=== PATIENT | female | born 1940 | race Caucasian/White ===

== ENCOUNTER 2020-11-10 18:05 | Observation (INO) ==
[2020-11-10] MEDS ORDERED: Ondansetron 4 MG/2 ML VIAL IVP PRN (21:41)
[2020-11-10] MEDS ORDERED: Naloxone 0.4 MG/ML INJ IVP PRN (21:41)
[2020-11-10] MEDS ORDERED: Melatonin 3 MG TABLET PO PRN (21:41)
[2020-11-10] MEDS ORDERED: Acetaminophen 325 MG TABLET PO PRN (21:41)
[2020-11-10] MEDS ORDERED: 0.9 % Sodium Chloride 1,000 ML IVC SCH (21:45)
[2020-11-10] MEDS ORDERED: Ipratropium 1 PUFF INHALER IH PRN (22:53)
[2020-11-10] MEDS: DilTIAZem 50 MG/50 ML IV.SOLN IVC SCH (23:01)
[2020-11-11 01:30] LABS: Hematocrit 37.5 % (35.3-44.9); Hemoglobin 13.1 g/dL (11.5-15.4); Mean Corpuscular HGB Conc 34.9 g/dL (31.6-35.5); Mean Corpuscular Hemoglobin 32.5 pg (28.0-33.3); Mean Corpuscular Volume 93.1 fL (83.0-100.0); Mean Platelet Volume 11.2 fL (9.4-12.4); Platelet Count 144 K/mcL (140-400); Red Blood Count 4.03 M/mcL (3.82-4.97); Red Cell Distribution Width 14.2 % (11.5-14.5); White Blood Count 5.4 K/mcL (4.3-11.1)
[2020-11-11 01:52] LABS: BUN/Creatinine Ratio 38 (6-26); Blood Urea Nitrogen 23 mg/dL (8-23); Calcium 9.1 mg/dL (8.6-10.3); Carbon Dioxide 26 mEq/L (23-29); Chloride 106 mEq/L (98-107); Glucose 93 mg/dL (70-105); Osmolality,Calculated 293 (280-300); Potassium 4.1 mEq/L (3.5-5.1); Sodium 140 mEq/L (136-145); eGFR For African Americans > 60 (> 60); eGFR For Non-African Americans > 60 (> 60)
[2020-11-11 01:55] LABS: C-Reactive Protein 10 mg/L (Less than 10); Lactate Dehydrogenase 166 Units/L (140-271)
[2020-11-11 02:13] LABS: Ferritin 64 ng/mL (10-120)
[2020-11-11 03:48] LABS: Adenovirus Not Detected (Not Detect); Bordetella Pertussis Not Detected (Not Detect); Chlamydophila pneumoniae Not Detected (Not Detect); Coronavirus 229E Not Detected (Not Detect); Coronavirus HKU1 Not Detected (Not Detect); Coronavirus NL63 Not Detected (Not Detect); Coronavirus OC43 Not Detected (Not Detect); Human Metapneumovirus Not Detected (Not Detect); Human Rhinovirus/Enterovirus Not Detected (Not Detect); Influenza A Subtype 2009 H1 Not Detected (Not Detect); Influenza B Not Detected (Not Detect); Mycoplasma pneumoniae Not Detected (Not Detect); Parainfluenza Virus 1 Not Detected (Not Detect); Parainfluenza Virus 2 Not Detected (Not Detect); Parainfluenza Virus 3 Not Detected (Not Detect); Parainfluenza Virus 4 Not Detected (Not Detect); Respiratory Syncytial Virus Not Detected (Not Detect); SARS-CoV-2 Not Detected (Not Detect)
[2020-11-11] MEDS ORDERED: Metoprolol XL (24 HR) Succ 25 MG TAB.ER.24H PO SCH (09:00)
[2020-11-11] MEDS: DilTIAZem CD (24hr) 240 MG CAP.ER.24H PO SCH (09:29)
[2020-11-11] MEDS: DilTIAZem 50 MG/50 ML IV.SOLN IVC SCH (09:54)
[2020-11-11] MEDS ORDERED: Menthol 1 EACH LOZENGE PO PRN (11:04)
[2020-11-11 16:39] LABS: Adenovirus Not Detected (Not Detect); Bordetella Pertussis Not Detected (Not Detect); Chlamydophila pneumoniae Not Detected (Not Detect); Coronavirus 229E Not Detected (Not Detect); Coronavirus HKU1 Not Detected (Not Detect); Coronavirus NL63 Not Detected (Not Detect); Coronavirus OC43 Not Detected (Not Detect); Human Metapneumovirus Not Detected (Not Detect); Human Rhinovirus/Enterovirus Not Detected (Not Detect); Influenza A Subtype 2009 H1 Not Detected (Not Detect); Influenza B Not Detected (Not Detect); Mycoplasma pneumoniae Not Detected (Not Detect); Parainfluenza Virus 1 Not Detected (Not Detect); Parainfluenza Virus 2 Not Detected (Not Detect); Parainfluenza Virus 3 Not Detected (Not Detect); Parainfluenza Virus 4 Not Detected (Not Detect); Respiratory Syncytial Virus Not Detected (Not Detect)
[2020-11-11 16:49] LABS: SARS-CoV-2 DETECTED (Not Detect)
[2020-11-11] MEDS: Gabapentin 400 MG CAPSULE PO SCH ×2 (17:07→21:55)
[2020-11-11] MEDS ORDERED: Metoprolol XL (24 HR) Succ 25 MG TAB.ER.24H PO ONE (17:21)
[2020-11-11] MEDS ORDERED: *HR* Metoprolol 5 MG/5 ML VIAL IVP ONE (17:21)
[2020-11-11 18:33] LABS: Albumin 3.9 g/dL (3.5-5.7); Albumin/Globulin Ratio 1.6 (1.1-2.2); Bilirubin,Direct 0.1 mg/dL (0.0-0.2); Bilirubin,Indirect 0.3 mg/dL (0.0-1.0); Bilirubin,Total 0.4 mg/dL (0.3-1.0); Globulin 2.4 g/dL (2.4-3.5); Total Protein 6.3 g/dL (6.4-8.9)
[2020-11-11] MEDS ORDERED: traZODone 50 MG TABLET PO SCH (21:00)
[2020-11-11] MEDS ORDERED: Divalproex (24 HR) 500 MG TABLET PO SCH (21:00)
[2020-11-11] MEDS ORDERED: Apixaban 5 MG TABLET PO SCH (21:00)
[2020-11-11] MEDS: Metoprolol XL (24 HR) Succ 25 MG TAB.ER.24H PO SCH (21:56)
[2020-11-11] MEDS: Apixaban 5 MG TABLET PO SCH (21:57)
[2020-11-12 00:54] VITALS: O2SAT 99
[2020-11-12 04:50] VITALS: BP 125/93; PULSE 85; TEMP 97.7
[2020-11-12] MEDS ORDERED: Vitamin E 200 UNIT (90MG) CAPSULE PO SCH (09:00)
[2020-11-12] MEDS ORDERED: Remdesivir 200 MG in 0.9 % Sodium Chloride 100 ML IVPB ONE (09:30)
[2020-11-12] MEDS: Metoprolol XL (24 HR) Succ 25 MG TAB.ER.24H PO SCH (10:05)
[2020-11-12] MEDS: Apixaban 5 MG TABLET PO SCH (10:06)
[2020-11-12] MEDS: DilTIAZem CD (24hr) 240 MG CAP.ER.24H PO SCH (10:07)
[2020-11-12] MEDS: Gabapentin 400 MG CAPSULE PO SCH (10:07)
[2020-11-12 10:10] LABS: Hematocrit 36.1 % (35.3-44.9); Hemoglobin 12.5 g/dL (11.5-15.4); Immature Granulocytes % 0.6 % (0-4); Lymphocytes # 1.2 K/mcL (0.6-4.6); Lymphocytes % 13.4 %; Mean Corpuscular HGB Conc 34.6 g/dL (31.6-35.5); Mean Corpuscular Hemoglobin 32.4 pg (28.0-33.3); Mean Corpuscular Volume 93.5 fL (83.0-100.0); Mean Platelet Volume 11.9 fL (9.4-12.4); Monocytes # 1.1 K/mcL (0.0-1.3); Monocytes % 11.9 %; Neutrophils # 6.6 K/mcL (1.6-8.9); Platelet Count 142 K/mcL (140-400); Red Blood Count 3.86 M/mcL (3.82-4.97); Red Cell Distribution Width 14.1 % (11.5-14.5); Segmented Neutrophils % 74.1 %
[2020-11-12 10:22] LABS: White Blood Count 8.9 K/mcL (4.3-11.1)
[2020-11-12 10:29] LABS: BUN/Creatinine Ratio 43 (6-26); Blood Urea Nitrogen 22 mg/dL (8-23); Calcium 8.9 mg/dL (8.6-10.3); Carbon Dioxide 26 mEq/L (23-29); Chloride 107 mEq/L (98-107); Glucose 139 mg/dL (70-105); Osmolality,Calculated 294 (280-300); Phosphorous 2.7 mg/dL (2.7-4.5); Potassium 4.4 mEq/L (3.5-5.1); Sodium 139 mEq/L (136-145); eGFR For African Americans > 60 (> 60); eGFR For Non-African Americans > 60 (> 60)
[2020-11-12 10:30] LABS: Albumin 3.6 g/dL (3.5-5.7); Albumin/Globulin Ratio 1.7 (1.1-2.2); Bilirubin,Direct 0.1 mg/dL (0.0-0.2); Bilirubin,Indirect 0.3 mg/dL (0.0-1.0); Bilirubin,Total 0.4 mg/dL (0.3-1.0); Globulin 2.1 g/dL (2.4-3.5); Total Protein 5.7 g/dL (6.4-8.9)
[2020-11-13] MEDS ORDERED: Remdesivir 100 MG in 0.9 % Sodium Chloride 100 ML IVPB SCH (09:00)
== END 2020-11-12 17:50 | disposition home or self-care (01) ==
LOC: 2NENU
PROVIDERS: ADMIT Student in an Organized Health Care Education/Training Program; ATTEND Student in an Organized Health Care Education/Training Program

== ENCOUNTER 2020-11-19 13:14 | Inpatient (IN) ==
[2020-11-19] MEDS ORDERED: Isovue-370 500 ML BOTTLE IVP ONE (13:43)
[2020-11-19 14:34] LABS: Basophils % 0.3 %; Eosinophils % 0.2 %; Hematocrit 34.4 % (35.3-44.9); Hemoglobin 12.2 g/dL (11.5-15.4); Immature Granulocytes % 1.4 % (0-4); Lymphocytes # 1.2 K/mcL (0.6-4.6); Lymphocytes % 10.6 %; Mean Corpuscular HGB Conc 35.5 g/dL (31.6-35.5); Mean Corpuscular Hemoglobin 32.1 pg (28.0-33.3); Mean Corpuscular Volume 90.5 fL (83.0-100.0); Mean Platelet Volume 11.2 fL (9.4-12.4); Monocytes # 1.8 K/mcL (0.0-1.3); Monocytes % 15.5 %; Neutrophils # 8.1 K/mcL (1.6-8.9); Platelet Count 173 K/mcL (140-400); Red Cell Distribution Width 13.7 % (11.5-14.5); White Blood Count 11.3 K/mcL (4.3-11.1)
[2020-11-19 14:48] LABS: Bilirubin,Urine Negative (Negative); Blood,Urine Large (Negative); Clarity,Urine Clear (Clear); Color,Urine Light-Yellow (Yellow); Glucose,Urine (UA) Normal (Normal); Ketones,Urine 10 mg/dL (Negative); Leukocyte Esterase,Urine Negative (Negative); Mucus,Urine Few per lpf (None-Few); Nitrite,Urine Negative (Negative); PH,Urine 6.5 pH Units (5.0-8.0); Protein,Urine Negative (Neg-Trace); RBC,Urine 50-100 per hpf (0-3); Specific Gravity,Urine 1.016 (1.010-1.025); Urobilinogen,Urine Normal (Normal); WBC,Urine 0-3 per hpf (0-3)
[2020-11-19 14:54] LABS: BUN/Creatinine Ratio 40 (6-26); Blood Urea Nitrogen 23 mg/dL (8-23); Calcium 8.4 mg/dL (8.6-10.3); Carbon Dioxide 32 mEq/L (23-29); Chloride 92 mEq/L (98-107); Glucose 81 mg/dL (70-105); Osmolality,Calculated 275 (280-300); Potassium 4.1 mEq/L (3.5-5.1); Sodium 131 mEq/L (136-145); eGFR For African Americans > 60 (> 60); eGFR For Non-African Americans > 60 (> 60)
[2020-11-19] MEDS ORDERED: 0.9 % Sodium Chloride 500 ML IVC ONE (17:29)
[2020-11-19] MEDS ORDERED: Piperacillin/Tazobactam 3.375 GM in 0.9 % Sodium Chloride Mini Bag 100 ML IVPB ONE (17:30)
[2020-11-19] MEDS ORDERED: Piperacillin/Tazobactam 3.375 GM in Water for inj. (sterile) 20 ML IVP ONE (17:40)
[2020-11-19] MEDS ORDERED: Acetaminophen 325 MG TABLET PO PRN (18:13)
[2020-11-19] MEDS ORDERED: Ondansetron 4 MG/2 ML VIAL IVP PRN (18:13)
[2020-11-19] MEDS ORDERED: Naloxone 0.4 MG/ML INJ IVP PRN (18:13)
[2020-11-19 18:50] LABS: Troponin I < 0.03 ng/mL (< 0.04)
[2020-11-19] MEDS: Ipratropium 1 PUFF INHALER IH SCH (22:01)
[2020-11-20] MEDS: Ipratropium 1 PUFF INHALER IH SCH ×6 (00:13→19:35)
[2020-11-20 03:14] LABS: Basophils % 0.4 %; Eosinophils % 0.1 %; Hematocrit 36.4 % (35.3-44.9); Hemoglobin 13.1 g/dL (11.5-15.4); Immature Granulocytes % 0.8 % (0-4); Lymphocytes % 8.5 %; Mean Corpuscular Hemoglobin 33.1 pg (28.0-33.3); Mean Corpuscular Volume 91.9 fL (83.0-100.0); Mean Platelet Volume 11.3 fL (9.4-12.4); Monocytes # 1.5 K/mcL (0.0-1.3); Monocytes % 13.6 %; Neutrophils # 8.6 K/mcL (1.6-8.9); Platelet Count 151 K/mcL (140-400); Red Blood Count 3.96 M/mcL (3.82-4.97); Red Cell Distribution Width 13.5 % (11.5-14.5); Segmented Neutrophils % 76.6 %; White Blood Count 11.2 K/mcL (4.3-11.1)
[2020-11-20 03:21] LABS: Fibrinogen 450 mg/dL (169-393)
[2020-11-20 03:29] LABS: D-Dimer 332 ng/mLFEU (0-500)
[2020-11-20 03:55] LABS: BUN/Creatinine Ratio 39 (6-26); Blood Urea Nitrogen 23 mg/dL (8-23); Calcium 8.7 mg/dL (8.6-10.3); Carbon Dioxide 26 mEq/L (23-29); Chloride 95 mEq/L (98-107); Glucose 78 mg/dL (70-105); Magnesium 2.2 mg/dL (1.6-2.6); Osmolality,Calculated 279 (280-300); Potassium 4.2 mEq/L (3.5-5.1); Sodium 133 mEq/L (136-145); Thyroid Stimulating Hormone 0.347 mcIU/mL (0.340-5.600); eGFR For African Americans > 60 (> 60); eGFR For Non-African Americans > 60 (> 60)
[2020-11-20] MEDS: Loratadine 10 MG TABLET PO SCH (08:05)
[2020-11-20 15:03] LABS: Acetaminophen < 10 mcg/mL (10-20); Salicylate < 2.5 mg/dL (15.0-30.0)
[2020-11-20] MEDS: Divalproex (24 HR) 500 MG TABLET PO SCH (20:25)
[2020-11-20] MEDS: Gabapentin 400 MG CAPSULE PO SCH (20:25)
[2020-11-20] MEDS: Metoprolol XL (24 HR) Succ 25 MG TAB.ER.24H PO SCH (20:25)
[2020-11-20] MEDS: Apixaban 2.5 MG TABLET PO SCH (20:26)
[2020-11-20] MEDS ORDERED: traZODone 50 MG TABLET PO SCH (21:00)
[2020-11-21] MEDS: Ipratropium 1 PUFF INHALER IH SCH ×7 (00:04→23:28)
[2020-11-21 08:32] LABS: Basophils % 0.3 %; Eosinophils # 0.1 K/mcL (0.0-0.6); Eosinophils % 1.8 %; Hematocrit 34.6 % (35.3-44.9); Hemoglobin 12.3 g/dL (11.5-15.4); Lymphocytes # 1.7 K/mcL (0.6-4.6); Lymphocytes % 23.9 %; Mean Corpuscular HGB Conc 35.5 g/dL (31.6-35.5); Mean Corpuscular Hemoglobin 32.5 pg (28.0-33.3); Mean Corpuscular Volume 91.5 fL (83.0-100.0); Mean Platelet Volume 10.5 fL (9.4-12.4); Monocytes % 14.3 %; Neutrophils # 4.3 K/mcL (1.6-8.9); Platelet Count 158 K/mcL (140-400); Red Blood Count 3.78 M/mcL (3.82-4.97); Red Cell Distribution Width 13.7 % (11.5-14.5); Segmented Neutrophils % 58.7 %; White Blood Count 7.3 K/mcL (4.3-11.1)
[2020-11-21 08:53] LABS: BUN/Creatinine Ratio 33 (6-26); Blood Urea Nitrogen 17 mg/dL (8-23); Calcium 8.4 mg/dL (8.6-10.3); Carbon Dioxide 34 mEq/L (23-29); Chloride 98 mEq/L (98-107); Glucose 90 mg/dL (70-105); Magnesium 2.1 mg/dL (1.6-2.6); Osmolality,Calculated 281 (280-300); Potassium 3.8 mEq/L (3.5-5.1); Sodium 135 mEq/L (136-145); eGFR For African Americans > 60 (> 60); eGFR For Non-African Americans > 60 (> 60)
[2020-11-21] MEDS: DilTIAZem CD (24hr) 120 MG CAP.ER.24H PO SCH (08:54)
[2020-11-21] MEDS: Vitamin E 200 UNIT (90MG) CAPSULE PO SCH (08:54)
[2020-11-21] MEDS: Furosemide 20 MG TABLET PO SCH (08:54)
[2020-11-21] MEDS: Apixaban 2.5 MG TABLET PO SCH ×2 (08:54→23:16)
[2020-11-21 08:55] LABS: D-Dimer 222 ng/mLFEU (0-500)
[2020-11-21] MEDS: Metoprolol XL (24 HR) Succ 25 MG TAB.ER.24H PO SCH ×2 (08:55→23:16)
[2020-11-21] MEDS: Loratadine 10 MG TABLET PO SCH (08:55)
[2020-11-21] MEDS: Gabapentin 400 MG CAPSULE PO SCH ×3 (08:55→23:16)
[2020-11-21 08:59] LABS: Fibrinogen 424 mg/dL (169-393)
[2020-11-21 09:26] LABS: Amphetamine Screen,Urine Negative ng/mL (Cutoff=1000); Barbiturate Screen,Urine Negative ng/mL (Cutoff=200); Benzodiazepines Screen,Urine Negative ng/mL (Cutoff=200); Cannabinoid Screen,Urine Negative ng/mL (Cutoff = 50); Cocaine Screen,Urine Negative ng/mL (Cutoff= 300); Opiate Screen,Urine Negative ng/mL (Cutoff=300); Phencyclidine Screen,Urine Negative ng/mL (Cutoff=25)
[2020-11-21] MEDS ORDERED: Isovue-370 500 ML BOTTLE IVP ONE (13:45)
[2020-11-21] MEDS: levoFLOXacin 750 MG/150 ML 750 MG/150 ML BAG IVPB SCH (18:30)
[2020-11-21] MEDS: Divalproex (24 HR) 500 MG TABLET PO SCH (23:16)
[2020-11-22] MEDS: Ipratropium 1 PUFF INHALER IH SCH ×6 (04:19→23:59)
[2020-11-22 06:20] LABS: Basophils % 0.3 %; Eosinophils # 0.2 K/mcL (0.0-0.6); Eosinophils % 2.6 %; Hematocrit 32.2 % (35.3-44.9); Hemoglobin 11.1 g/dL (11.5-15.4); Immature Granulocytes % 1.1 % (0-4); Lymphocytes % 27.2 %; Mean Corpuscular HGB Conc 34.5 g/dL (31.6-35.5); Mean Corpuscular Hemoglobin 32.4 pg (28.0-33.3); Mean Corpuscular Volume 93.9 fL (83.0-100.0); Monocytes # 1.1 K/mcL (0.0-1.3); Monocytes % 14.4 %; Neutrophils # 4.1 K/mcL (1.6-8.9); Platelet Count 184 K/mcL (140-400); Red Blood Count 3.43 M/mcL (3.82-4.97); Red Cell Distribution Width 13.8 % (11.5-14.5); Segmented Neutrophils % 54.4 %; White Blood Count 7.4 K/mcL (4.3-11.1)
[2020-11-22 06:38] LABS: BUN/Creatinine Ratio 20 (6-26); Blood Urea Nitrogen 12 mg/dL (8-23); Calcium 8.4 mg/dL (8.6-10.3); Carbon Dioxide 33 mEq/L (23-29); Chloride 100 mEq/L (98-107); Glucose 95 mg/dL (70-105); Osmolality,Calculated 284 (280-300); Potassium 4.2 mEq/L (3.5-5.1); Sodium 137 mEq/L (136-145); eGFR For African Americans > 60 (> 60); eGFR For Non-African Americans > 60 (> 60)
[2020-11-22] MEDS: levoFLOXacin 750 MG/150 ML 750 MG/150 ML BAG IVPB SCH (10:06)
[2020-11-22] MEDS: Vitamin E 200 UNIT (90MG) CAPSULE PO SCH (10:07)
[2020-11-22] MEDS: Gabapentin 400 MG CAPSULE PO SCH ×3 (10:08→20:03)
[2020-11-22] MEDS: DilTIAZem CD (24hr) 120 MG CAP.ER.24H PO SCH (10:11)
[2020-11-22] MEDS: Furosemide 20 MG TABLET PO SCH (10:11)
[2020-11-22] MEDS: Metoprolol XL (24 HR) Succ 25 MG TAB.ER.24H PO SCH ×2 (10:11→20:02)
[2020-11-22] MEDS: Apixaban 2.5 MG TABLET PO SCH ×2 (10:12→20:04)
[2020-11-22] MEDS: Loratadine 10 MG TABLET PO SCH (10:15)
[2020-11-22] MEDS: Divalproex (24 HR) 500 MG TABLET PO SCH (20:02)
[2020-11-22] MEDS: Menthol 1 EACH LOZENGE PO PRN ×2 (20:22→23:18)
[2020-11-22] MEDS ORDERED: Melatonin 3 MG TABLET PO ONE (22:51)
[2020-11-23] MEDS: Ipratropium 1 PUFF INHALER IH SCH ×3 (04:52→11:25)
[2020-11-23] MEDS: Menthol 1 EACH LOZENGE PO PRN (06:04)
[2020-11-23 07:26] VITALS: BP 118/81; PULSE 83; TEMP 98.3; O2SAT 95
[2020-11-23] MEDS: Vitamin E 200 UNIT (90MG) CAPSULE PO SCH (08:44)
[2020-11-23] MEDS: DilTIAZem CD (24hr) 120 MG CAP.ER.24H PO SCH (08:44)
[2020-11-23] MEDS: Furosemide 20 MG TABLET PO SCH (08:44)
[2020-11-23] MEDS: Apixaban 2.5 MG TABLET PO SCH (08:44)
[2020-11-23] MEDS: Gabapentin 400 MG CAPSULE PO SCH (08:45)
[2020-11-23] MEDS: Metoprolol XL (24 HR) Succ 25 MG TAB.ER.24H PO SCH (08:45)
[2020-11-23] MEDS: Loratadine 10 MG TABLET PO SCH (08:45)
[2020-11-23] MEDS: levoFLOXacin 750 MG/150 ML 750 MG/150 ML BAG IVPB SCH (08:45)
== END 2020-11-23 14:54 | disposition home health service (06) | DRG 871 ==
LOC: 3BNU 13:14 → EMEROOARM 13:14 → SUATTDRO 18:24 → 3BNU 20:38 → SUATTDRO 11-20 21:00
PROVIDERS: ADMIT Pharmacist; ATTEND Internal Medicine